=== PATIENT | female | born 1950 ===

== ENCOUNTER 2018-07-20 11:26 | Emergency (ER) | payer MEDICARE ==
[2018-07-20] MEDS ORDERED: Metoclopramide HCl 10 MG/2 ML VIAL ONE (12:09)
[2018-07-20] MEDS ORDERED: diphenhydrAMINE 50 MG/ML VIAL ONE (12:09)
[2018-07-20] MEDS ORDERED: Acetaminophen 500 MG TAB ONE (13:30)
[2018-07-20] MEDS ORDERED: Ketorolac Tromethamine 30 MG/ML VIAL ONE (13:36)
[2018-07-20] MEDS ORDERED: Ondansetron PF 4 MG/2 ML Vial ONE (14:09)
[2018-07-20] MEDS ORDERED: Magnesium Sulfate 2 GM/NS 0.9% 50 ML BAG ONE (14:09)
[2018-07-20] MEDS ORDERED: Water For Inject, Bacteriostat 30 ML ONE (14:09)
[2018-07-20] MEDS ORDERED: methylPREDNISolone Sod Succ/PF 125 MG/2 ML VIAL ONE (14:09)
[2018-07-20 14:26] LABS: #Basophils 0.1 thou/uL (0.0-0.2); #Lymphocytes 1.6 thou/uL (1.20-3.40); #Monocytes 0.4 thou/uL (0.11-0.59); #Neutrophils 7.7 thou/uL (1.40-6.50); %Basophils 0.6 % (0.0-1.0); %Eosinophils 0.1 % (0.0-10.0); %Lymphocytes 16.7 % (21.0-51.0); %Neutrophils 78.6 % (42.0-75.0); Hemoglobin 13.4 g/dL (12.0-16.0); Mean Corpuscular HGB CONC 32.4 g/dL (32.0-36.0); Mean Corpuscular Hemoglobin 30.3 pg (27.0-31.0); Mean Corpuscular Volume 93.4 fL (78.0-98.0); Mean Platelet Volume 8.6 fL (7.4-10.4); Platelet Count 234 thou/uL (130-400); RBC Distribution Width 11.9 % (11.5-14.5); Red Blood Cell (RBC) Count 4.44 mill/uL (4.20-5.40); White Blood Cell (WBC) Count 9.8 thou/uL (4.8-10.8)
[2018-07-20 14:41] LABS: ALT (SGPT) 21 U/L (8-55); AST (SGOT) 28 U/L (5-34); Albumin 3.9 g/dL (3.4-4.8); Alkaline Phosphatase 49 U/L (40-150); Anion Gap 11 mmol/L (10-20); BUN (Urea Nitrogen) 13 mg/dL (9.8-20.1); Bilirubin, Total 0.3 mg/dL (0.2-1.2); Calc. Creatinine Clearance 0 mL/min (70-130); Calcium 9.2 mg/dL (7.8-10.44); Carbon Dioxide 28 mmol/L (23-31); Chloride 102 mmol/L (98-107); Estimated GFR-MDRD 86; Globulin 3.1 g/dL (2.4-3.5); Glucose 106 mg/dL (80-115); Potassium 4.2 mmol/L (3.5-5.1); Sodium 137 mmol/L (136-145)
[2018-07-20] MEDS ORDERED: Valproate Sodium 500 MG/5 ML VIAL ONE (15:18)
[2018-07-20] MEDS ORDERED: Mag-Al Plus 1200 MG/1200 MG/120 MG/30 ML UDCUP ONE (15:36)
[2018-07-20] MEDS ORDERED: Lidocaine Viscous Sol 2% 15 ml UD Cup ONE (15:36)
[2018-07-20] MEDS ORDERED: Lorazepam 2 MG/ML VIAL ONE (17:10)
--- NOTE | 2018-07-20 18:30 | CT ---
NONCONTRAST CT HEAD: 07/20/18 HISTORY: Headache for the past two days. Patient says headache is diffuse and pressure-like in nature. COMPARISON: None available. FINDINGS: There is no acute cortical infarction, hemorrhage, mass effect, or midline shift. Symmetric focal are as of increased density is seen in each putamen likely to basal ganglia calcifications. Ventricular s ystem is normal in size, shape and position. There is mucosal thickening seen in the bilateral ethmoi denise air cells, greater on the left with mucosal thickening also present in the left maxillary antrum. Mastoid air cells are clear. The calvarial structures are intact. IMPRESSION: 1. No acute intracranial abnormality is demonstrated. 2. Sinus disease involving the bilateral sphenoid sinuses and left maxillary antrum. POS: [facility]
== END 2018-07-20 18:01 | disposition home or self-care (01) ==
LOC: SCSER 11:26
DX: R51 Headache (principal); E03.9 Hypothyroidism, unspecified
CPT/HCPCS: 36415; 70450; 80053; 85025; 96361; 96365; 96367; 96375; J1200; J1885; J2060; J2405; J2765; J2930; J3475